=== PATIENT | female | born 1990 | race Caucasian/White ===

== ENCOUNTER 2017-08-05 17:15 | Inpatient (IN) ==
[2017-08-05 15:33] LABS: Basophils % 0.2 %; Eosinophils # 0.2 K/mcL (0.0-0.6); Eosinophils % 1.2 %; Hemoglobin 12.9 g/dL (11.5-15.4); Immature Granulocytes % 0.6 % (0-4); Lymphocytes # 2.9 K/mcL (0.6-4.6); Lymphocytes % 15.9 %; Mean Corpuscular HGB Conc 33.1 g/dL (31.6-35.5); Mean Corpuscular Hemoglobin 29.5 pg (28.0-33.3); Mean Corpuscular Volume 89.2 fL (83.0-100.0); Mean Platelet Volume 11.8 fL (9.4-12.4); Monocytes % 5.6 %; Neutrophils # 14.1 K/mcL (1.6-8.9); Platelet Count 287 K/mcL (140-400); Red Blood Count 4.37 M/mcL (3.82-4.97); Red Cell Distribution Width 13.4 % (11.5-14.5); Segmented Neutrophils % 76.5 %
[2017-08-05 15:46] LABS: Amphetamine Screen,Urine Negative ng/mL (Cutoff=1000); Barbiturate Screen,Urine Negative ng/mL (Cutoff=200); Benzodiazepines Screen,Urine Negative ng/mL (Cutoff=200); Cannabinoid Screen,Urine Negative ng/mL (Cutoff = 50); Cocaine Screen,Urine Negative ng/mL (Cutoff= 300); Opiate Screen,Urine Negative ng/mL (Cutoff=300); Phencyclidine Screen,Urine Negative ng/mL (Cutoff=25)
[2017-08-05 15:54] LABS: Creatinine,Urine 15 mg/dL
[2017-08-05 15:59] LABS: Alanine Aminotransferase 9 Units/L (7-52); Aspartate Amino Transferase 13 Units/L (13-39); BUN/Creatinine Ratio 11 (6-26); Blood Urea Nitrogen 6 mg/dL (6-20); Lactate Dehydrogenase 125 Units/L (140-271); Uric Acid 4.7 mg/dL (2.3-7.6); eGFR For African Americans > 60 (> 60); eGFR For Non-African Americans > 60 (> 60)
--- NOTE | 2017-08-05 16:52 | OB/GYN History & Physical ---
Date of Encounter: 08/05/17 Time of Encounter: 16:49 Assessment and Plan (1) 38 weeks gestation of Current visit: Yes Status: Acute The patient has been receiving care with Dr. Mari Henriquez. She will be 39 weeks on 08/06/17. (2) Oligohydramnios in witt in third trimester Current visit: Yes Status: Acute DEONDRE of 4.3 on today's ultrasound complicated by decreased movement and nonreassuring biophysical profile in the office. The plan is for induction of labor. Informed consent obtained (3) Gestational hypertension Current visit: Yes Status: Acute The patient is being monitored on labor and delivery. She attributes her blood pressure elevation to anxiety. She is asymptomatic with facial swelling, headache, blurred vision or epigastric pain. She is not hyperreflexic Qualifiers: Trimester: third trimester Qualified Code(s): O13.3 - Gestational [ -induced] hypertension without significant proteinuria, third trimester (4) Placental abnormality in third trimester Current visit: Yes Status: Acute The patient has been followed for growth ultrasound and has had NSTs in the office due to marginal and insertion of the umbilical cord into the placenta. Today there was a two-week discrepancy between BPD and abdominal circumference. There was oligohydramnios identified today along with the patient's appreciation for decreased movement in the last 24 hours (5) Maternal obesity syndrome in third trimester Current visit: Yes Status: Acute The patient has had normal glucose testing in the office. She is at risk for adverse outcome. History of Present Illness Chief complaint: 39 week IUP for IOL HPI: Ms. Larios is a 27 year old female with an EDC of 08/13/17 currently at 38 weeks and 6 days who presents to labor and delivery after nonreassuring testing in the office. The patient has been followed for care with Dr. Henriquez and her has been complicated by a marginal placental cord insertion. The patient presented today for a growth ultrasound and had an estimated weight of 7 lbs. 5 oz. with a two-week leg on the abdominal circumference. Growth was at 63.5%. The DEONDRE was 4.3 and the biophysical profile was 4/8 with -2 for movement and tone. The patient reports decreased movement over the last 24 hours. The patient denied any loss of fluid, vaginal bleeding or contractions. She reports that her cervix was closed on her exam earlier this week with Dr. Henriquez. Her was complicated in the first trimester by vaginal bleeding and an initial BMI of 33. Her blood type is A+, she is rubella immune and varicella immune. Upon arrival to labor and delivery she had significantly elevated systolic blood pressures Past Med Surg Social Fam HX - Past Medical History Attestation: Yes The following information was validated with the patient. Source: patient, old records reviewed Medical history: no medical history Psychiatric history: no psych history - Past Surgical History Surgical History: other (T and A) - Social History Smoking Status: Never smoker Smokeless Tobacco Status: No Alcohol use: none Drug use: none - Family History Mother Name: denies any medical history Living Status: Still Living Obstetrical History - Pregnancies : 1 Medications and Allergies Vit Calc,Iron,Folic [ Vitamins] 1 tab PO DAILY 08/05/17 [ History] 3 Allergy/AdvReac Type Severity Reaction Status Date / Time No Known Allergies Allergy Verified 08/05/17 15:37 Review of System OB All systems PM: reviewed and no additional remarkable complaints except as stated - Constitutional Constitutional ROS IM: weight gain - Cardiovascular Cardiovascular: leg edema (Bilateral) Exam - Vital Signs Vital signs: Blood pressure 187/95, afebrile. heart tones CAT 1, irregular contractions noted which patient does not appreciate - Constitutional Constitutional: well developed, well nourished, no acute distress, obese - HEENT HEENT: Normocephaly, Mucus Membranes Moist - Neck Neck exam: normal inspection, supple - Lungs Respiratory exam: CTAB - Cardiovascular Cardiovascular exam: RRR - Breasts Breast: bilateral: normal (Gravid) - Abdomen Abdomen: Present: bowel sounds normal, gravid, non tender - Extremities Extremities exam: normal inspection, pedal edema, warm Deep Tendon Reflex Grade: 2+ Normal - Vulva Vulva: bilateral: normal - Vagina Vagina: Present: normal moisture - Cervix Dilation: 1 Effacement: 70 Station: -1 (Vertex) - Anus/Rectum Anus/Rectum: Present: normal perianal skin - Comments Comments: A Medeiros catheter was inserted through the cervix was sterile technique. 60 mL of sterile fluid was used to inflate the Medeiros balloon. Results Result Diagrams: 08/05/17 15:09 08/05/17 15:09 Abnormal lab results WBC 18.5 K/mcL (4.3-11.1) H 08/05/17 15:09 Neutrophils # 14.1 K/mcL (1.6-8.9) H 08/05/17 15:09 Creatinine 0.54 mg/dL (0.60-1.20) L 08/05/17 15:09 Lactate Dehydrogenase 125 Units/L (140-271) L 08/05/17 15:09 All other labs normal. - VTE Reasons for not Prescribing Prophylaxis: Treatment not Indicated - Low risk for VTE
[~2017-08-05 17:15] MED LIST: *HR* Nalbuphine 20 MG/ML AMPUL IVP PRN; Famotidine 20 MG/2 ML VIAL IVP PRN; Metoclopramide 10 MG/2 ML VIAL IVP PRN; Ondansetron 4 MG/2 ML VIAL IVP PRN; Oxytocin 20 units/ LR 1000 mL 20 UNIT/1,000 ML BAG IVC SCH; Penicillin G Potassium 5,000,000 UNIT in 0.9 % Sodium Chloride Mini Bag 100 ML IVPB ONE; Ringers Solution, Lactated 1,000 ML IVC SCH
[2017-08-05 17:31] LABS: Protein/Creatinine Ratio,Urine 0.11 mg/mg (0.00-0.20)
--- NOTE | 2017-08-05 19:05 | OB Labor Progress Note ---
Date of Encounter: 08/05/17 Time of Encounter: 19:03 Labor Progress Note - Subjective Subjective: Just received Nubain for pain - Vital Signs Vital Signs: 151/68 - Cervix Cervix: Cervical hui in place - Heart Tones Heart Tones: 125/moderate/+accels/-decels - [place]: 2-5 - Plan Plan: Continue current management plan Increase pitocin per policy Anticipate
[2017-08-05] MEDS: Penicillin G Potassium 2,500,000 UNIT in 0.9 % Sodium Chloride 100 ML IVPB SCH (21:59)
--- NOTE | 2017-08-05 22:37 | Anesthesia Evaluation PreOp ---
Date of Encounter: 08/05/17 Time of Encounter: 22:12 - Past History Planned Operation: labor epidural Cardiac History: Denies any Significant Hx Pulmonary History: Denies Any Significant HX MEDICAL MALPRACTICE PARALEGAL History: Denies Any Significant HX Other Medical History: Denies Any Significant HX Anesthesia History: No Prior Anesthetic Complications, Past Anesthesia (T&A at age 10, colonoscopy. No problems with GA. No FHAP.) : Yes Alcohol Use: none Drug use: none Medications and Allergies Vit Calc,Iron,Folic [ Vitamins] 1 tab PO DAILY 08/05/17 [ History] 3 Allergy/AdvReac Type Severity Reaction Status Date / Time No Known Allergies Allergy Verified 08/05/17 15:37 - Meds/Allergy Pre-op Review Medications Reviewed: Yes Allergies Reviewed: Yes Beta Blockers on Current Med List: No Anesthesia Results - Labs 08/05/17 15:09 08/05/17 15:09 Anesthesia Exam VSS and FHTs stable. Height: 5'5" Weight: 101 kg NPO (# of Hours): 9 Pain Scale: 0 Pain Scale Used: Numeric (1 - 10) - HEENT Pupil (Motor): Pupils equal, EOMI Mallampati: III Teeth: Normal Oral Opening: Greater than 3 - MEDICAL MALPRACTICE PARALEGAL LOC: Oriented MEDICAL MALPRACTICE PARALEGAL Motor: Normal RUE, Normal LUE, Normal RLE, Normal LLE, Normal Face MEDICAL MALPRACTICE PARALEGAL Sensory: Normal: RUE, LUE, RLE, LLE, Face - Cardiac Rhythm: Regular - Pulmonary Breath Sounds: bilateral Clear Respiratory Effort: Symmetrical Anesthesia Assess/Plan ASA Score: 2 Modified Trupti Scale for Level of Consciousness: Cooperative, oriented, and tranquil Anesthetic Plan: Regional Monitoring Plan: Standard Monitors
[2017-08-05] MEDS ORDERED: Bupivacaine-MPF 0.25% 10 ML VIAL EP ONE (23:09)
[2017-08-05] MEDS ORDERED: *HR* FentaNYL (PF) 100 MCG/2 ML VIAL EP ONE (23:09)
[2017-08-05] MEDS ORDERED: Epidural Premix (fent/bupiv) 110 ML EP SCH (23:15)
--- NOTE | 2017-08-06 00:53 | OB Labor Progress Note ---
Date of Encounter: 08/06/17 Time of Encounter: 00:49 Labor Progress Note - Subjective Subjective: Patient comfortable with epidural - Vital Signs Vital Signs: 145/69 - Cervix Cervix: 6/90/-1 - Heart Tones Heart Tones: 125 /moderate/- accels/prolonged decel after epidural - [place]: 2-4 - Interventions Interventions: IUPC and FSE placed clear fluid noted. - Plan Plan: Continue to increase pitocin per policy PCN for GBS Anticipate
--- NOTE | 2017-08-06 00:56 | Anesthesia Procedures ---
Date of Encounter: 08/05/17 Time of Encounter: 23:56 Procedures: Anesthesia - Epidural/Spinal Patient ID/Chart reviewed: Yes Patient examined: Yes OB Eval: Gestational age: 38 OB Eval: : 1 OB Eval: Hx Para: 0 OB Eval: Dilated at (cm): 6 OB Eval: Contractions: Non-stressed pattern Consent Obtained: Yes Supplemental Oxygen: None/Room Air Site Prep: Aseptic Technique, Sterile prep and drape, Povidone-Iodine 1% Patient position: upright Local Anesthetic: Lidocaine 1% Amount of Local Anesthetic used: 5 Touhy Needle Gauge: 18 Touhy Needle Depth (cm): 6 Catheter Depth at Skin (cm): 18 Test Dose (1.5% Lido + Epi): Volume given (mls): 3 Test Dose Result: Negative Loading Dose: 0.25% Marcaine (mls): 8 Loading Dose: Fentanyl (mcg): 100 Loading Dose Administered: Thru Catheter Infusion Med: 0.125% Bupivacaine w/ 2 mcg/ml Fentanyl Infusion Rate (mls/hr): [address]: Tegaderm, Tape Interspace Used: L3-L4 Loss of Resistance (TADEO): Yes Blood: No CSF: No Paresthesia: No Vitals + FHT's: 3 Vital Signs Time 2356 0020 0025 0030 0035 BP 162/86 134/59 134/63 125/69 129/66 Pulse 99 67 81 80 79 FHTs 130 130 120 120 130
[2017-08-06] MEDS: Penicillin G Potassium 2,500,000 UNIT in 0.9 % Sodium Chloride 100 ML IVPB SCH (02:14)
[2017-08-06] MEDS ORDERED: EPHEDrine 50 MG/ML VIAL ONE (05:56)
[2017-08-06] MEDS ORDERED: Morphine Sulfate/PF 5mg/10mL Vial ONE (05:56)
--- NOTE | 2017-08-06 05:56 | OB Labor Progress Note ---
Date of Encounter: 08/06/17 Time of Encounter: 05:54 Labor Progress Note - Subjective Subjective: Pt comfortable with epidural - Cervix Cervix: 5/90/-2 - Heart Tones Heart Tones: 135/moderate/+accels/ prolonged and variable decels with pitocin - Platea Platea: 3-7 - Plan Plan: Unable to keep patient on pitocin without decels, even after prolonged time of rest with Cat I tracing No cervical change Discussed with Dr. Gilbert. She will proceed with C/S. Discussed with family in agreement.
[2017-08-06] MEDS ORDERED: Chloroprocaine/PF 20 ML VIAL INFILT ONE (05:57)
[2017-08-06] MEDS ORDERED: Water for inj. (sterile) 10 ML IV ONE (05:58)
[2017-08-06] MEDS ORDERED: *HR* Oxytocin 10 UNIT/ML VIAL IM ONE ×2 (06:00→07:09)
[2017-08-06] MEDS ORDERED: cefOXitin 2,000 MG in Water for inj. (sterile) 20 ML 20 ML IVP ONE (06:01)
[2017-08-06] MEDS ORDERED: Water for inj. (sterile) 20 ML IV ONE (06:02)
[2017-08-06] MEDS ORDERED: CefOXitin 2,000 MG VIAL ONE (06:02)
[2017-08-06] MEDS ORDERED: MetroNIDAZOLE 500 MG/100 ML 500 MG/100 ML BAG IVPB ONE (06:03)
--- NOTE | 2017-08-06 06:07 | Event Note ---
Date of Encounter: 08/06/17 Time of Encounter: 06:06 Called due to patient having intolerance to labor. Patient has had repetitive episodes of lates with recovery after Pitocin stopped. She is currently at 5 cm and has been to 5 cm for several hours. Patient is known to have oligohydramnios at 39 weeks. Informed consent obtained to proceed with section for delivery.
[2017-08-06] MEDS ORDERED: *HR* FentaNYL (PF) 100 MCG/2 ML VIAL ONE (06:28)
[2017-08-06] MEDS ORDERED: *HR* Promethazine 25 MG/ML VIAL IVP PRN (07:01)
[2017-08-06] MEDS ORDERED: Acetaminophen IV 1,000 MG/100 ML INFUS..BTL IVPB ONE (07:01)
--- NOTE | 2017-08-06 08:03 | OB/GYN Procedure Note ---
Section - Date of procedure: 08/06/17 Preop diagnosis: arrest of dilation, category 2 FHT tracing Post-op diagnosis: same Procedure: section, repeat low transverse Surgeon: Maria Luisa Gilbert Estimated blood loss (cc): 400 Was there an dental assistant instructor present: Yes Testing Machine Operator: Diana Yuen Paper Spooler: Consuelo Enamorado Anesthesia Type: Spinal section complications: none Disposition: L&D Recovery Room Specimens: Placenta, Cord segment - (s) A Infant Delivery Date: 08/06/17 Delivery Time: 07:08 Presentation: vertex Position: unknown Route of delivery: other Gender: Female Viability: Viable Pounds: 6 Ounces: 10 Gram Weight: 3.015 kg at 1 minute: 9 at 5 minutes: 9 Shoulder Dystocia: not encountered Placenta: spontaneous, uterine exploration Cord: 3 umbilical vessels - Narrative Narrative: The patient was brought to the operating room, sign in completed. Anesthesia attempted to dose epidural but the catheter was clotted. A spinal was placed with the patient in the right lateral recumbent position. monitoring was reassuring during this time. The patient was then prepped and draped in the usual sterile fashion. A timeout was completed. A Pfannenstiel skin incision was then made and sharply dissected down to the fascia. The fascia was then incised in the midline and extended bluntly and sharply bilaterally. 2 straight Stephen clamps were placed on the inferior fascial edge and the fascia was bluntly and sharply dissected away from rectus muscles, this was repeated superiorly.The rectus muscles were bluntly and sharply bissected. Peritoneum was bluntly entered and extended superiorly and inferiorly. A bladder blade was placed to protect the bladder. The Vesicouterine peritoneum was incised with Metzenbaum scissors and extended laterally then the bladder flap was reflected inferiorly and the bladder blade was replaced to protect the bladder. A low transverse incision was then made in the lower uterine segment down to the amnion. This was then bluntly extended laterally then upward in a U fashion with bandage scissors bilaterally. The amnion was then bluntly entered with Allis clamp, clear fluid was seen, and the was delivered in vertex presentation. An umbilical cord folded over itself along the shoulder was noted.. The infant was vigorous and suctioned on the operating field. After delayed cord clamping, the infant was handed to the nursery care team. Cord segment was obtained. IV Pitocin was started. The placenta was delivered spontaneous and intact. The uterine cavity was digitally inspected and noted to be clear and then was wiped clean with a moist lap sponge. Tubes and ovaries were inspected and found to be grossly normal. Ring clamps were placed on the edge of the uterine incision and the uterine incision was closed using 0 Vicryl suture in a running locking fashion. A second imbricating layer completed the uterine closure. Good hemostasis was achieved. Gloves were changed. The pelvic cavity was copiously irrigated with sterile water and good hemostasis was again noted. Peritoneal edges and rectus muscles were inspected and good hemostasis was achieved. The fascia was then closed using an 0 PDS loop in a running nonlocking fashion. Subcutaneous tissue was irrigated with sterile water good hemostasis was achieved. Subcutaneous layer was closed with 3-0 Monocryl in a running nonlocking fashion. The skin was then closed with 4-0 Monocryl in a subcuticular fashion. Ravindra dressing was placed. Medeiros was noted to be draining clear yellow urine at the end of the procedure. All sponge and instrument counts were correct at the end of the procedure. The patient was taken to the recovery room in stable condition.
[2017-08-06] MEDS ORDERED: Simethicone 80 MG TAB.CHEW PO PRN (11:01)
[2017-08-06] MEDS ORDERED: Ondansetron 4 MG/2 ML VIAL IVP PRN (11:01)
[2017-08-06] MEDS ORDERED: Sennosides 8.6 MG TABLET PO PRN (11:01)
[2017-08-06] MEDS ORDERED: Metoclopramide 10 MG/2 ML VIAL IVP PRN (11:01)
[2017-08-06 11:22] LABS: Mean Platelet Volume 11.3 fL (9.4-12.4)
[2017-08-06 11:23] LABS: Hematocrit 36.4 % (35.3-44.9); Hemoglobin 12.2 g/dL (11.5-15.4); Mean Corpuscular HGB Conc 33.5 g/dL (31.6-35.5); Mean Corpuscular Hemoglobin 29.8 pg (28.0-33.3); Mean Corpuscular Volume 88.8 fL (83.0-100.0); Platelet Count 251 K/mcL (140-400); Red Cell Distribution Width 13.2 % (11.5-14.5)
[2017-08-06] MEDS: Oxytocin 20 units/ LR 1000 mL 20 UNIT/1,000 ML BAG IVC SCH ×2 (11:42→20:11)
[2017-08-06 11:44] LABS: Alanine Aminotransferase 8 Units/L (7-52); Aspartate Amino Transferase 20 Units/L (13-39); BUN/Creatinine Ratio 12 (6-26); Blood Urea Nitrogen 6 mg/dL (6-20); Lactate Dehydrogenase 168 Units/L (140-271); Uric Acid 4.2 mg/dL (2.3-7.6); eGFR For African Americans > 60 (> 60); eGFR For Non-African Americans > 60 (> 60)
[2017-08-06 12:03] LABS: Lymphocytes # 1.7 K/mcL (0.6-4.6); Monocytes # 0.6 K/mcL (0.0-1.3); Neutrophils # 24.8 K/mcL (1.6-8.9)
[2017-08-06] MEDS ORDERED: *HR* Meperidine 25 MG/ML SYRINGE IVP PRN (13:26)
--- NOTE | 2017-08-06 13:32 | Anesthesia Evaluation Post Op ---
Date of Encounter: 08/06/17 Time of Encounter: 12:51 - Vital Signs Vital Signs: vss, with family at BS - Airway Airway: Non-obstructed - Mental Status Mental Status: Alert & Oriented, Answers Appropriately - Pain Pain Scale used: Ayse (Faces) - Nausea Vomiting Nausea Vomiting: Not Present - Hydration Hydration: Tolerates oral liquids
[2017-08-06] MEDS: *HR* OxyCODONE/APAP 5/325 TABLET PO PRN ×2 (15:36→19:55)
[2017-08-06] MEDS: Ibuprofen 600 MG TABLET PO PRN (18:16)
[2017-08-07] MEDS: MORPHINE SUL Oral CONC 10 MG/0.5 ML ORAL.SYG SL PRN ×2 (00:04→08:29)
[2017-08-07] MEDS: *HR* OxyCODONE/APAP 5/325 TABLET PO PRN ×4 (04:46→23:50)
[2017-08-07] MEDS: Prenatal Vit/FA 1 EACH TABLET PO SCH (08:09)
[2017-08-07] MEDS ORDERED: Caffeine/Sodium Benzoate 500 MG in 0.9 % Sodium Chloride 1,000 ML IV ONE (08:17)
[2017-08-07] MEDS ORDERED: Ringers Solution, Lactated 500 ML IVC ONE (08:20)
[2017-08-07] MEDS: Ibuprofen 600 MG TABLET PO PRN ×3 (08:29→20:40)
--- NOTE | 2017-08-07 08:37 | Anesthesia Progress Note ---
Date of Encounter: 08/07/17 Time of Encounter: 08:15 Anesthesia Note - Note Note: 08/07/17 08:27 Called to patient's room for complaints of headache.Patient states headache began at 1800 last pm. States was relieved by rest and scheduled pain med. states headache returned at 0530 this morning when got up to the bathroom. Reports headache is along the sides of her head, worse upon sitting, or standing upright. Also states is worse with lights on. Rates a 7/10 at its worst and a 4 at rest, while lying down. Denies nausea or vomiting. Discussed with patient the treatment for spinal headache, conservative with IV fluids, caffeine and NSAIDS and pain meds. Will begin with this treatment regimin and evaluate later today for possible blood patch.
--- NOTE | 2017-08-07 09:49 | OB/GYN Progress Note ---
Date of Encounter: 08/07/17 Time of Encounter: 09:47 - Assessment and Plan (1) Status post delivery Current Visit: Yes Status: Acute Patient reports no nausea or vomiting. She is tolerating a regular diet, ambulating, voiding and has return of bowel function (2) spinal headache Current Visit: Yes Status: Acute Patient has been evaluated by anesthesia. She is having trial of conservative treatments. If no response she will be counseled about a spinal blood patch Subjective - Subjective Principal diagnosis: POD1 Interval history: The patient is status post an emergent on 08/06/17. She has been evaluated for possible spinal headache. Conservative treatment and is currently being implemented. The patient reports headaches upon standing. She denies nausea or vomiting when she is resting. She is tolerating a regular diet. She has had good oral pain control. She reports passing flatus Patient reports: appetite normal, voiding normally, pain well controlled, ambulating normally [place]: doing well, nursing well Objective - Vital Signs Latest vital signs: Vital Signs Temp Pulse Pulse Resp BP Pulse Ox 08/07/17 07:45 98.2 F 90 16 142/92 98 08/07/17 04:45 98.1 F 86 16 130/85 98 08/07/17 00:40 97.8 F 88 16 124/75 97 08/06/17 19:55 97.9 F 86 16 132/84 98 08/06/17 16:12 98.3 F 88 88 16 127/85 08/06/17 13:15 98.1 F 88 16 138/76 99 08/06/17 12:15 97.9 F 82 16 135/88 99 08/06/17 11:15 97.5 F L 77 16 132/83 98 08/06/17 10:45 97.6 F 82 16 131/83 98 08/06/17 10:15 98.3 F 80 12 131/84 98 Intake and Output 08/06/17 08/07/17 08/07/17 23:59 07:59 15:59 Intake Total 1500 / 1500 490 / 490 0 / 0 Output Total 300 / 300 2600 / 2600 450 / 450 Balance 1200 / 1200 -2110 / -2110 -450 / -450 Intake: IV Fluids 1000 / 1000 0 / 0 Pitocin 20 unit In 1,000 ml @ 1000 / 1000 125 mls/hr IVC .Q8H MATTIE Rx#: [id number] Lactated Ringers 500 ML @ 1000 0 / 0 mls/hr IVC .Q30M ONE Rx#: [id number] Oral 500 / 500 490 / 490 Output: Urine 900 / 900 450 / 450 Catheter 300 / 300 1700 / 1700 Other: Weight 97.704 kg Patient Weight 08/07/17 23:59 Weight 97.704 kg - Exam Lungs: bilateral: normal Chest: Normal S1, Normal S2 Extremities: Present: edema Abdomen: Present: normal appearance, soft. Absent: distention, tenderness Incision: Present: dry, dressed. Absent: erythematous Uterus: Present: normal, firm Comments: U-1 - Labs Labs: Laboratory Results - last 24 hr 08/06/17 08/06/17 11:14 11:14 WBC 27.6 H RBC 4.10 Hgb 12.2 Hct 36.4 MCV 88.8 MCH 29.8 MCHC 33.5 RDW 13.2 Plt Count 251 MPV 11.3 Seg Neutrophils % 88.0 Band Neutrophils % 2.0 Lymphocytes % 6.0 Monocytes % 2.0 Myelocytes % 2.0 H Neutrophils # 24.8 H Lymphocytes # 1.7 Monocytes # 0.6 BUN 6 Creatinine 0.49 L Est GFR ( Amer) > 60 Est GFR (Non-Af Amer) > 60 BUN/Creatinine Ratio 12 Uric Acid 4.2 AST 20 ALT 8 Lactate Dehydrogenase 168 - Allied health notes Allied health notes reviewed: nursing
--- NOTE | 2017-08-07 19:02 | Anesthesia Progress Note ---
Date of Encounter: 08/07/17 Time of Encounter: 18:58 Anesthesia Note - Note Note: 08/07/17 18:58 Follow up visit for earlier complaints of headache, presenting like spinal headache.Was treated with 500ml bolus IVF and 500mg IV caffeine mid-morning. Saw patient around 1245 and was sitting up, headache gone, feeling good. Just now, patient states she feels as if the headache may be returning. Is only minimal at this point. was just given a percocet by her nurse. Patient still looks well, sitting up, has showered and been mobile in her room all day. Another note, patient's bp has been slightly elevated last night and today. 140/ 90.
[2017-08-08] MEDS: Ibuprofen 600 MG TABLET PO PRN (05:11)
[2017-08-08] MEDS: *HR* OxyCODONE/APAP 5/325 TABLET PO PRN (05:11)
--- NOTE | 2017-08-08 08:09 | Discharge Summary ---
Date of Encounter: 08/08/17 Time of Encounter: 08:06 - Discharge Diagnosis (1) Breast feeding status of mother Priority: Secondary Status: Acute Comments: support prn (2) Status post delivery Priority: Primary Status: Acute Comments: Continue routine care discharge home today follow up with Dr. Gilbert in 2 weeks for incision check (3) spinal headache Priority: Secondary Status: Acute Comments: Patient reports no headache since yesterday - Discharge Medications Prescriptions: OxyCODONE/APAP 5/325 [Percocet 5/325 MG] 1 each PO Q4HR PRN 5 Days #30 tablet PRN Reason: Moderate pain 4-6 Ibuprofen [Motrin] 600 mg PO Q6HR PRN #60 tablet PRN Reason: Cramping Docusate [Colace] 100 mg PO BID #30 capsule Home Medications: Vit Calc,Iron,Folic [ Vitamins] 1 tab PO DAILY 08/05/17 [ History] Docusate [Colace] 100 mg PO BID #30 capsule 08/08/17 [Rx] Ibuprofen [Motrin] 600 mg PO Q6HR PRN #60 tablet 08/08/17 [Rx] OxyCODONE/APAP 5/325 [Percocet 5/325 MG] 1 each PO Q4HR PRN 5 Days #30 tablet [Rx] Allergies/Adverse Reactions: 3 Allergy/AdvReac Type Severity Reaction Status Date / Time No Known Allergies Allergy Verified 08/05/17 15:37 Data Procedures and tests throughout hospitalization: Laboratory Tests 08/05/17 08/05/17 08/05/17 15:09 15:09 15:09 WBC 18.5 H RBC 4.37 Hgb 12.9 Hct 39.0 MCV 89.2 MCH 29.5 MCHC 33.1 RDW 13.4 Plt Count 287 MPV 11.8 Immature Gran % 0.6 Seg Neutrophils % 76.5 Band Neutrophils % Lymphocytes % 15.9 Monocytes % 5.6 Eosinophils % 1.2 Basophils % 0.2 Myelocytes % Neutrophils # 14.1 H Lymphocytes # 2.9 Monocytes # 1.0 Eosinophils # 0.2 Basophils # 0.0 BUN 6 Creatinine 0.54 L Est GFR ( Amer) > 60 Est GFR (Non-Af Amer) > 60 BUN/Creatinine Ratio 11 Uric Acid 4.7 AST 13 ALT 9 Lactate Dehydrogenase 125 L Urine Creatinine Protein/Creatinin Ratio Urine Total Protein Urine Opiates Screen Negative Ur Barbiturates Screen Negative Ur Phencyclidine Scrn Negative Ur Amphetamines Screen Negative U Benzodiazepines Scrn Negative Urine Cocaine Screen Negative U Marijuana (THC) Screen Negative 08/05/17 08/05/17 08/06/17 15:09 17:00 11:14 WBC 27.6 H RBC 4.10 Hgb 12.2 Hct 36.4 MCV 88.8 MCH 29.8 MCHC 33.5 RDW 13.2 Plt Count 251 MPV 11.3 Immature Gran % Seg Neutrophils % 88.0 Band Neutrophils % 2.0 Lymphocytes % 6.0 Monocytes % 2.0 Eosinophils % Basophils % Myelocytes % 2.0 H Neutrophils # 24.8 H Lymphocytes # 1.7 Monocytes # 0.6 Eosinophils # Basophils # BUN Creatinine Est GFR ( Amer) Est GFR (Non-Af Amer) BUN/Creatinine Ratio Uric Acid AST ALT Lactate Dehydrogenase Urine Creatinine 15 75 Protein/Creatinin Ratio TNP 0.11 Urine Total Protein < 4 8 Urine Opiates Screen Ur Barbiturates Screen Ur Phencyclidine Scrn Ur Amphetamines Screen U Benzodiazepines Scrn Urine Cocaine Screen U Marijuana (THC) Screen 08/06/17 11:14 WBC RBC Hgb Hct MCV MCH MCHC RDW Plt Count MPV Immature Gran % Seg Neutrophils % Band Neutrophils % Lymphocytes % Monocytes % Eosinophils % Basophils % Myelocytes % Neutrophils # Lymphocytes # Monocytes # Eosinophils # Basophils # BUN 6 Creatinine 0.49 L Est GFR ( Amer) > 60 Est GFR (Non-Af Amer) > 60 BUN/Creatinine Ratio 12 Uric Acid 4.2 AST 20 ALT 8 Lactate Dehydrogenase 168 Urine Creatinine Protein/Creatinin Ratio Urine Total Protein Urine Opiates Screen Ur Barbiturates Screen Ur Phencyclidine Scrn Ur Amphetamines Screen U Benzodiazepines Scrn Urine Cocaine Screen U Marijuana (THC) Screen Date of admission: 08/05/17 17:15 Primary care physician: PCP NONE Discharging clinician: Marija Skaggs Anticipated date of discharge: 08/08/17 - Patient Status Disposition: Home, Self-Care Condition: Good Functional capacity at discharge: independent ambulation - Discharge Instructions Follow Up With: NONE,PCP [Primary Care Provider] - Maria Luisa Gilbert MD [Partnered Physician] - - Diet and Activity Activity: increase activity as tolerated Diet: regular diet Hospital Course Delivery: section Episiotomy: none Laceration: none Other procedures: none complications: none Discharge diagnosis: IUP at term delivered baby: female (breast feeding) Time Attestation: Total time spent providing and/or coordinating discharge services: Time Spent: Less than 30 minutes - VTE Reasons for not Prescribing Prophylaxis: Treatment not Indicated - Low risk for VTE Documentation of Mechanical Device: Intermittent pneumatic compression device Exam - Constitutional Vitals: Temp Pulse Resp BP Pulse Ox 97.7 F 70 14 129/88 97 08/08/17 05:05 08/08/17 05:05 08/08/17 05:05 08/08/17 05:05 08/08/17 05:05 General appearance IM: A&O X 3, pleasant, answers questions appropriately - Respiratory Respiratory exam: Present: CTAB - Cardiovascular Cardiovascular exam IM: Present: RRR, +S1, +S2 - GI/Abdominal GI/Abdominal exam IM: normal bowel sounds Incision: normal, dry, dressed (ROLANDO dressing) - Uterine Tone: Firm Uterus Position: 2 Fingers Below Umbilicus, Midline - Extremities Exam Extremities exam IM: Present: full ROM, normal capillary refill, normal inspection - Neurological Exam Neurological exam: alert, oriented X3, reflexes normal
[2017-08-08 08:56] VITALS: BP 126/79
[2017-08-08] MEDS: Prenatal Vit/FA 1 EACH TABLET PO SCH (09:08)
== END 2017-08-08 12:30 | disposition home or self-care (01) | DRG 766 ==
LOC: 1NENULAB → 1NENUOBS 08-06 10:19
PROVIDERS: ADMIT Obstetrics & Gynecology; ATTEND Obstetrics & Gynecology

== ENCOUNTER 2022-01-20 09:31 | Inpatient (IN) ==
[2022-01-20] MEDS ORDERED: CeFAZolin 2,000 MG/120 ML BAG IVPB ONE (10:17)
[2022-01-20] MEDS ORDERED: Ringers Solution, Lactated 1,000 ML IVC ONE (10:17)
[2022-01-20] MEDS ORDERED: Metoclopramide 10 MG/2 ML VIAL IVP ONE (10:17)
[2022-01-20] MEDS ORDERED: OXYTOCIN/RINGERS LACTATE 10 UNIT/166.6 ML BAG IVC ONE (10:17)
[2022-01-20] MEDS ORDERED: Famotidine 20 MG/2 ML VIAL IVP ONE (10:17)
[2022-01-20] MEDS ORDERED: MetroNIDAZOLE 500 MG/100 ML 500 MG/100 ML BAG IVPB ONE (10:24)
[2022-01-20] MEDS ORDERED: Oxytocin 30 UNIT/503 ML BAG IVC SCH ×2 (10:30→14:28)
[2022-01-20] MEDS ORDERED: Ringers Solution, Lactated 1,000 ML IVC SCH (10:30)
[2022-01-20 10:53] LABS: Basophils % 0.2 %; Eosinophils # 0.3 K/mcL (0.0-0.6); Eosinophils % 1.8 %; Hemoglobin 12.8 g/dL (11.5-15.4); Immature Granulocytes % 0.7 % (0-4); Lymphocytes # 2.3 K/mcL (0.6-4.6); Lymphocytes % 13.4 %; Mean Corpuscular HGB Conc 32.8 g/dL (31.6-35.5); Mean Corpuscular Hemoglobin 29.7 pg (28.0-33.3); Mean Corpuscular Volume 90.5 fL (83.0-100.0); Monocytes # 1.1 K/mcL (0.0-1.3); Monocytes % 6.2 %; Neutrophils # 13.5 K/mcL (1.6-8.9); Platelet Count 269 K/mcL (140-400); Red Blood Count 4.31 M/mcL (3.82-4.97); Red Cell Distribution Width 13.8 % (11.5-14.5); Segmented Neutrophils % 77.7 %; White Blood Count 17.3 K/mcL (4.3-11.1)
[2022-01-20 11:03] LABS: Amphetamine Screen,Urine Negative ng/mL (Cutoff=1000); Barbiturate Screen,Urine Negative ng/mL (Cutoff=200); Benzodiazepines Screen,Urine Negative ng/mL (Cutoff=200); Cannabinoid Screen,Urine Negative ng/mL (Cutoff = 50); Cocaine Screen,Urine Negative ng/mL (Cutoff= 300); Opiate Screen,Urine Negative ng/mL (Cutoff=300); Phencyclidine Screen,Urine Negative ng/mL (Cutoff=25)
[2022-01-20] MEDS ORDERED: *HR* HYDROmorphone PF 0.5 MG/0.5 ML SYRINGE IVP PRN (11:32)
[2022-01-20] MEDS ORDERED: Promethazine 6.25 MG in Water for inj. (sterile) 20 ML IVPB PRN (11:32)
[2022-01-20] MEDS ORDERED: Ondansetron 4 MG/2 ML VIAL IVP PRN ×2 (11:32→14:28)
[2022-01-20] MEDS ORDERED: *HR* Morphine Sulfate/PF 10 MG/10 ML AMPUL ONE (11:39)
[2022-01-20] MEDS ORDERED: *HR* FentaNYL (PF) 100 MCG/2 ML VIAL ONE (11:40)
[2022-01-20] MEDS ORDERED: EPHEDrine 50 MG/ML VIAL ONE (11:40)
[2022-01-20] MEDS ORDERED: Ketorolac 30 MG/ML VIAL ONE (11:40)
[2022-01-20] MEDS ORDERED: Acetaminophen IV 1,000 MG/100 ML BAG IVPB ONE (11:40)
[2022-01-20] MEDS ORDERED: *HR* Phenylephrine 10 MG/ML VIAL ONE (11:40)
[2022-01-20] MEDS ORDERED: Ringers Solution, Lactated 1,000 ML ONE ×2 (13:00→18:18)
[2022-01-20] MEDS ORDERED: Naloxone 0.4 MG/ML INJ IVP PRN (14:28)
[2022-01-20] MEDS ORDERED: Acetaminophen 325 MG TABLET PO SCH (14:28)
[2022-01-20] MEDS: Ibuprofen 600 MG TABLET PO SCH ×2 (16:50→23:20)
[2022-01-20] MEDS: Acetaminophen 325 MG TABLET PO SCH (23:20)
[2022-01-21] MEDS: Acetaminophen 325 MG TABLET PO SCH ×3 (05:13→22:11)
[2022-01-21] MEDS: Ibuprofen 600 MG TABLET PO SCH ×3 (05:13→22:11)
[2022-01-21 05:59] LABS: Basophils % 0.2 %; Eosinophils # 0.1 K/mcL (0.0-0.6); Eosinophils % 0.4 %; Hematocrit 33.4 % (35.3-44.9); Immature Granulocytes % 0.7 % (0-4); Lymphocytes # 2.9 K/mcL (0.6-4.6); Lymphocytes % 14.7 %; Mean Corpuscular HGB Conc 32.6 g/dL (31.6-35.5); Mean Corpuscular Hemoglobin 29.4 pg (28.0-33.3); Mean Platelet Volume 11.8 fL (9.4-12.4); Monocytes # 1.1 K/mcL (0.0-1.3); Monocytes % 5.9 %; Neutrophils # 15.1 K/mcL (1.6-8.9); Platelet Count 251 K/mcL (140-400); Red Blood Count 3.71 M/mcL (3.82-4.97); Red Cell Distribution Width 13.7 % (11.5-14.5); Segmented Neutrophils % 78.1 %; White Blood Count 19.3 K/mcL (4.3-11.1)
[2022-01-21 06:00] LABS: Hemoglobin 10.9 g/dL (11.5-15.4)
[2022-01-21] MEDS: Simethicone 80 MG TAB.CHEW PO PRN ×2 (10:16→22:11)
[2022-01-21] MEDS: Prenatal Vit/FA 1 EACH TABLET PO SCH (10:16)
[2022-01-21] MEDS: *HR* OxyCODONE Immed Rel 5 MG TABLET PO PRN ×3 (10:16→22:28)
[2022-01-22] MEDS: Ibuprofen 600 MG TABLET PO SCH ×2 (05:41→11:41)
[2022-01-22] MEDS: Acetaminophen 325 MG TABLET PO SCH ×2 (05:41→11:41)
[2022-01-22] MEDS: Prenatal Vit/FA 1 EACH TABLET PO SCH (08:24)
[2022-01-22 09:48] VITALS: BP 129/88; PULSE 78; TEMP 98.2; O2SAT 98
[2022-01-22] MEDS: *HR* OxyCODONE Immed Rel 5 MG TABLET PO PRN (11:41)
== END 2022-01-22 12:13 | disposition home or self-care (01) | DRG 785 ==
LOC: SAMDAY 09:31 → 1NENULAB 09:39 → 1NENUOBS 16:04
PROVIDERS: ADMIT Obstetrics & Gynecology; ATTEND Obstetrics & Gynecology